=== PATIENT | female | born 1950 | race African-American/Black ===

== ENCOUNTER 2022-04-08 21:06 | Emergency (ER) | payer MEDICARE, MEDICAID ==
[~2022-04-08] VITALS: Ht 165.1 cm; Wt 73.0 kg
[~2022-04-08 21:06] MED LIST: AZOPT BOTHEYE; BRIM15DR2 BOTHEYE; CLON0.5T PO; GLYB5TAB4; NIFE60TA64 PO; NITR0.4T; PHEN100C4; TRAV2.5D9 BOTHEYE
[2022-04-08] MEDS ORDERED: ASPIRIN 81MG TABLET PO ONE (21:30)
[2022-04-08 22:23] LABS: BASOPHILS % 0.4 % (0.0-2.0); EOSINOPHILS % 1.6 % (0.0-5.0); HEMATOCRIT. 33.2 % (36.0-48.0); LYMPHOCYTES % 31.3 % (20.0-50.0); MEAN CORPUSCULAR HEMOGLOBIN 27.2 pg (28.0-32.0); MONOCYTES % 9.6 % (2.0-8.0); NEUTROPHILS % 57.1 % (40.0-76.0); PLATELET 201 x1000/uL (130-400); RED BLOOD CELL COUNT 4.05 mill/uL (4.2-5.4)
[2022-04-08 22:31] LABS: CHLORIDE 110 mEq/L (98-107)
[2022-04-09] VITALS: BP 165/99
[2022-04-09] MEDS ORDERED: ASPIRIN 81MG TABLET PO NR (01:00)
== END 2022-04-09 02:07 | disposition home or self-care (01) ==
LOC: ER 21:06
DX: R07.89 Other chest pain (principal); R03.0 Elevated blood-pressure reading, without diagnosis of hypertension; E11.9 Type 2 diabetes mellitus without complications; Z98.61 Coronary angioplasty status; Z79.84 Long term (current) use of oral hypoglycemic drugs; Z79.899 Other long term (current) drug therapy; Z88.0 Allergy status to penicillin
CPT/HCPCS: 36415; 71045; 80053; 83880; 84484; 85025; 93005; 99285; Z7610

== ENCOUNTER 2024-07-01 16:16 | Emergency (ER) | payer MEDICARE, MEDICAID ==
[~2024-07-01] VITALS: Ht 162.6 cm; Wt 59.0 kg
[~2024-07-01 16:16] MED LIST changes: -CLON0.5T PO; +CLON0.5T2 PO; +IBUP-2028 MT; +RISP05 PO; +TRAV2.5D BOTHEYE; -TRAV2.5D9 BOTHEYE
[2024-07-01 16:26] VITALS: O2SAT 99
[2024-07-01 17:36] LABS: BASOPHILS % 0.1 % (0.0-2.0); EOSINOPHILS % 1.2 % (0.0-5.0); HEMATOCRIT. 34.3 % (36.0-48.0); HEMOGLOBIN. 11.4 g/dL (12.0-16.0); LYMPHOCYTES % 37.1 % (20.0-50.0); MEAN CORPUSCULAR HEMOGLOBIN 27.6 pg (28.0-32.0); MEAN CORPUSCULAR HGB CONC 33.1 g/dL (31.0-37.0); MEAN CORPUSCULAR VOLUME 83.4 fL (81.0-99.0); MEAN PLATELET VOLUME 7.2 fl (7.4-10.4); MONOCYTES % 10.3 % (2.0-8.0); NEUTROPHILS % 51.3 % (40.0-76.0); PLATELET 193 x1000/uL (130-400); RED BLOOD CELL COUNT 4.12 mill/uL (4.2-5.4); RED CELL DISTRIBUTION WIDTH 13.7 % (11.6-14.6); WHITE BLOOD COUNT 6.1 x1000/uL (4.5-11.0)
[2024-07-01 17:38] LABS: CHLORIDE 110 mEq/L (98-107); POTASSIUM 3.8 mEq/L (3.5-5.1); SODIUM 145 mEq/L (136-145)
[2024-07-01 17:39] LABS: CARBON DIOXIDE 28 mEq/L (21-32)
[2024-07-01 17:40] LABS: CALCIUM 10.5 mg/dL (8.7-10.4)
[2024-07-01 17:44] LABS: CREATININE 0.7 mg/dL (0.6-1.0); GLUCOSE 138 mg/dL (70-105)
[2024-07-01 17:45] LABS: UREA NITROGEN BLOOD 18 mg/dL (9-23)
[2024-07-01 17:46] LABS: TROPONIN I HIGH SENSITIVITY 5 ng/L (3.0-34)
[2024-07-01 17:49] LABS: PARTIAL THROMBOPLASTIN TIME 23.9 sec (23.4-31.0); PROTHROMBIN TIME 10.9 sec (9.6-11.0)
[2024-07-01 20:58] VITALS: BP 167/89; PULSE 71; RESP 16; TEMP 37.05852; O2SAT 99
== END 2024-07-01 21:13 | disposition left against medical advice (07) ==
LOC: ER 16:16 → EDBEDREQ 16:37 → EDBEDREQTM 18:46 → EDBEDREQ 18:46 → ER 21:13
DX: R07.89 Other chest pain (principal); F41.9 Anxiety disorder, unspecified; F31.9 Bipolar disorder, unspecified; I11.0 Hypertensive heart disease with heart failure; I50.9 Heart failure, unspecified; F03.93 Unspecified dementia, unspecified severity, with mood disturbance; Z79.899 Other long term (current) drug therapy; Z88.0 Allergy status to penicillin
CPT/HCPCS: 36415; 71045; 80048; 83880; 84484; 85025; 93005; 99285

== ENCOUNTER 2024-10-19 18:45 | Inpatient (IN) | payer MEDICARE, MEDICAID ==
[~2024-10-19] VITALS: Ht 162.6 cm; Wt 66.2 kg
[2024-10-19 21:31] VITALS: BP 129/81; PULSE 84; RESP 20; TEMP 36.7
[2024-10-19] MEDS ORDERED: ONDANSETRON HCL 4MG/2ML INJ IV PRN (22:15)
[2024-10-19] MEDS ORDERED: ATROPINE SULFATE 1MG/10ML SYR IV PRN (22:15)
[2024-10-19] MEDS ORDERED: POLYVINYL ALCOHOL OPHTH DROPS 15ML EACHEYE PRN (22:15)
[2024-10-19] MEDS ORDERED: DEXTROSE 50% WATER 50ML SYRINGE IV PRN (22:15)
[2024-10-20] MEDS: ACETAMINOPHEN 325MG TABLET PO PRN (00:46)
[2024-10-20] MEDS: BLOOD SUGAR DIAGNOSTIC STRIP TEST SCH (06:05)
[2024-10-20 07:41] LABS: BASOPHILS % 0.2 % (0.0-2.0); EOSINOPHILS % 0.7 % (0.0-5.0); HEMATOCRIT. 32.6 % (36.0-48.0); HEMOGLOBIN. 10.7 g/dL (12.0-16.0); LYMPHOCYTES % 34.2 % (20.0-50.0); MEAN CORPUSCULAR HEMOGLOBIN 27.1 pg (28.0-32.0); MEAN CORPUSCULAR HGB CONC 32.8 g/dL (31.0-37.0); MEAN CORPUSCULAR VOLUME 82.4 fL (81.0-99.0); MEAN PLATELET VOLUME 7.3 fl (7.4-10.4); MONOCYTES % 11.4 % (2.0-8.0); NEUTROPHILS % 53.5 % (40.0-76.0); PLATELET 188 x1000/uL (130-400); RED BLOOD CELL COUNT 3.95 mill/uL (4.2-5.4); RED CELL DISTRIBUTION WIDTH 13.6 % (11.6-14.6); WHITE BLOOD COUNT 6.4 x1000/uL (4.5-11.0)
[2024-10-20 07:44] LABS: CHLORIDE 106 mEq/L (98-107); POTASSIUM 3.5 mEq/L (3.5-5.1); SODIUM 141 mEq/L (136-145)
[2024-10-20 07:45] LABS: CALCIUM 10.4 mg/dL (8.7-10.4); CARBON DIOXIDE 30 mEq/L (21-32)
[2024-10-20 07:50] LABS: GLUCOSE 93 mg/dL (70-105); UREA NITROGEN BLOOD 14 mg/dL (9-23)
[2024-10-20 07:52] LABS: ALANINE AMINOTRANSFERASE 19 IU/L (10-49); ALBUMIN 3.7 g/dL (3.2-4.8); ASPARTATE AMINOTRANSFERASE 17 IU/L (<34); BILIRUBIN TOTAL 0.5 mg/dL (0.1-1.0); PREALBUMIN 11.5 mg/dl (10.0-40.0); PROTEIN TOTAL 6.6 g/dL (6.0-8.3)
[2024-10-20 08:00] VITALS: BP 133/75; PULSE 89; RESP 18; TEMP 36.6; O2SAT 99
[2024-10-20 08:03] LABS: CREATININE 0.4 mg/dL (0.6-1.0)
[2024-10-20] MEDS: ASPIRIN 81MG TABLET PO SCH (08:33)
[2024-10-20] MEDS: AMLODIPINE 10MG TABLET PO SCH (08:34)
[2024-10-20] MEDS: METOPROLOL TARTRATE 50MG TABLET PO SCH (08:34)
[2024-10-20] MEDS: CLOPIDOGREL 75MG TABLET PO SCH (08:34)
[2024-10-20] MEDS: ISOSORBIDE MONONITRATE 30MG TABLET SR 24HR PO SCH (08:35)
[2024-10-20] MEDS: BRIMONIDINE 0.2% OPHTH DROPS 10ML BOTHEYE SCH (08:35)
[2024-10-20] MEDS: INSULIN LISPRO 100 UNITS/ML SUBCUT SCH (08:39)
[2024-10-20 18:20] LABS: CLARITY URINE CLOUDY (CLEAR); COLOR URINE DARK YELLOW (YELLOW); GLUCOSE URINE NEGATIVE (NEGATIVE); KETONES URINE NEGATIVE (NEGATIVE); LEUKOCYTE ESTERASE URINE TRACE (NEGATIVE); NITRITE URINE NEGATIVE (NEGATIVE); OCCULT BLOOD URINE TRACE (NEGATIVE); PH URINE 5.5 (4.5-8.0); PROTEIN URINE NEGATIVE (NEGATIVE); SPECIFIC GRAVITY URINE 1.024 (1.005-1.030)
[2024-10-20 19:26] LABS: BACTERIA URINE 3+; CALCIUM OXALATE CRYSTALS URINE 1+ /lpf; RBC URINE 0-2 /hpf (0-2); SQUAMOUS EPITHELIAL CELL URINE 1+ /lpf (RARE/1+); WBC URINE 0-2 /hpf (0-2)
[2024-10-20 20:00] VITALS: BP 109/64; PULSE 88; RESP 18; TEMP 36.4; O2SAT 96
[2024-10-20] MEDS: ATORVASTATIN CALCIUM 40MG TABLET PO SCH (21:11)
[2024-10-21 08:00] VITALS: BP 143/84; PULSE 88; RESP 18; TEMP 36.4; O2SAT 96
[2024-10-21 13:27] LABS: BASOPHILS % 0.2 % (0.0-2.0); EOSINOPHILS % 1.1 % (0.0-5.0); HEMATOCRIT. 31.6 % (36.0-48.0); HEMOGLOBIN. 10.2 g/dL (12.0-16.0); LYMPHOCYTES % 31.7 % (20.0-50.0); MEAN CORPUSCULAR HEMOGLOBIN 26.8 pg (28.0-32.0); MEAN CORPUSCULAR HGB CONC 32.3 g/dL (31.0-37.0); MEAN CORPUSCULAR VOLUME 82.9 fL (81.0-99.0); MEAN PLATELET VOLUME 7.4 fl (7.4-10.4); MONOCYTES % 11.6 % (2.0-8.0); NEUTROPHILS % 55.4 % (40.0-76.0); PLATELET 212 x1000/uL (130-400); RED BLOOD CELL COUNT 3.82 mill/uL (4.2-5.4); RED CELL DISTRIBUTION WIDTH 13.7 % (11.6-14.6); WHITE BLOOD COUNT 5.9 x1000/uL (4.5-11.0)
[2024-10-21 13:54] LABS: CHLORIDE 108 mEq/L (98-107); POTASSIUM 3.9 mEq/L (3.5-5.1); SODIUM 144 mEq/L (136-145)
[2024-10-21 13:55] LABS: CALCIUM 10.5 mg/dL (8.7-10.4); CARBON DIOXIDE 29 mEq/L (21-32)
[2024-10-21 14:00] LABS: CREATININE 0.6 mg/dL (0.6-1.0); GLUCOSE 111 mg/dL (70-105); IRON 35 ug/dL (50-170); UREA NITROGEN BLOOD 15 mg/dL (9-23)
[2024-10-21 14:01] LABS: AMMONIA 30 uMol/L (<32)
[2024-10-21 14:02] LABS: ALANINE AMINOTRANSFERASE 15 IU/L (10-49); ALBUMIN 3.7 g/dL (3.2-4.8); ASPARTATE AMINOTRANSFERASE 15 IU/L (<34); BILIRUBIN TOTAL 0.4 mg/dL (0.1-1.0)
[2024-10-21 14:03] LABS: FOLIC ACID (FOLATE) SERUM 18.91 ng/mL (>5.38); PROTEIN TOTAL 6.7 g/dL (6.0-8.3); TOTAL IRON BINDING CAPACITY 223 ug/dl (250-425)
[2024-10-21 14:04] LABS: FERRITIN 41 ng/mL (10-291); THYROID STIMULATING HORMONE 3.43 uIU/mL (0.55-4.78); VITAMIN B12 SERUM 849 pg/mL (211-911)
[2024-10-21 20:00] VITALS: BP 121/83; PULSE 89; RESP 19; TEMP 36.5; O2SAT 98
[2024-10-22 08:00] VITALS: BP 149/88; PULSE 74; RESP 18; TEMP 36.4; O2SAT 100
[2024-10-22] MEDS: ASCORBIC ACID 500 MG TABLET PO SCH (09:33)
[2024-10-22] MEDS: FERROUS SULFATE 325MG TABLET PO SCH (09:33)
[2024-10-22] MEDS: DOCUSATE SODIUM 100MG CAPSULE PO SCH (12:55)
[2024-10-22 20:00] VITALS: BP 109/62; PULSE 78; RESP 19; TEMP 36.8; O2SAT 99
[2024-10-23 08:00] VITALS: BP 108/63; PULSE 57; RESP 18; TEMP 36.3; O2SAT 98
[2024-10-23 20:00] VITALS: BP 139/84; PULSE 93; RESP 20; TEMP 36.2; O2SAT 98
[2024-10-23] MEDS: METOPROLOL TARTRATE 50MG TABLET PO SCH (22:00)
[2024-10-24] MEDS: ISOSORBIDE MONONITRATE 30MG TABLET SR 24HR PO SCH (09:00)
[2024-10-24 10:49] VITALS: BP 140/74; PULSE 70; RESP 18; TEMP 36.2; O2SAT 95
[2024-10-24 20:00] VITALS: BP 147/78; PULSE 88; RESP 19; TEMP 36.4; O2SAT 99
[2024-10-25 20:14] VITALS: BP 121/71; PULSE 76; RESP 19; TEMP 36.1; O2SAT 99
[2024-10-26 08:00] VITALS: BP 114/59; PULSE 64; RESP 17; TEMP 36.5; O2SAT 100
[2024-10-26 11:58] LABS: CHLORIDE 108 mEq/L (98-107); SODIUM 142 mEq/L (136-145)
[2024-10-26 11:59] LABS: BASOPHILS % 0.2 % (0.0-2.0); CALCIUM 10.4 mg/dL (8.7-10.4); CARBON DIOXIDE 28 mEq/L (21-32); EOSINOPHILS % 1.1 % (0.0-5.0); HEMATOCRIT. 33.2 % (36.0-48.0); HEMOGLOBIN. 10.7 g/dL (12.0-16.0); LYMPHOCYTES % 37.9 % (20.0-50.0); MEAN CORPUSCULAR HEMOGLOBIN 26.8 pg (28.0-32.0); MEAN CORPUSCULAR HGB CONC 32.4 g/dL (31.0-37.0); MEAN CORPUSCULAR VOLUME 82.6 fL (81.0-99.0); MEAN PLATELET VOLUME 7.1 fl (7.4-10.4); MONOCYTES % 10.5 % (2.0-8.0); NEUTROPHILS % 50.3 % (40.0-76.0); PLATELET 220 x1000/uL (130-400); RED BLOOD CELL COUNT 4.01 mill/uL (4.2-5.4); RED CELL DISTRIBUTION WIDTH 14.1 % (11.6-14.6); WHITE BLOOD COUNT 6.7 x1000/uL (4.5-11.0)
[2024-10-26 12:04] LABS: CREATININE 0.6 mg/dL (0.6-1.0); GLUCOSE 106 mg/dL (70-105); UREA NITROGEN BLOOD 20 mg/dL (9-23)
[2024-10-26 12:06] LABS: ALANINE AMINOTRANSFERASE 10 IU/L (10-49); ALBUMIN 3.8 g/dL (3.2-4.8); ASPARTATE AMINOTRANSFERASE 13 IU/L (<34); BILIRUBIN TOTAL 0.3 mg/dL (0.1-1.0); PROTEIN TOTAL 6.9 g/dL (6.0-8.3)
[2024-10-26 20:00] VITALS: BP 120/64; PULSE 93; RESP 18; TEMP 36.5; O2SAT 98
[2024-10-27 08:00] VITALS: BP 149/87; PULSE 75; RESP 18; TEMP 36.5; O2SAT 98
[2024-10-27] MEDS: LACTULOSE 20G/30ML UDC PO SCH (15:51)
[2024-10-27] MEDS: ERGOCALCIFEROL 50000UNITS CAPSULE PO SCH (17:55)
[2024-10-27 20:02] VITALS: BP 136/92; PULSE 86; RESP 20; TEMP 36.5; O2SAT 99
[2024-10-28 06:35] LABS: CALCIUM 10.8 mg/dL (8.7-10.4)
[2024-10-28 06:42] LABS: T4 FREE 1.04 ng/dL (0.89-1.76)
[2024-10-28 08:00] VITALS: BP 130/69; PULSE 67; RESP 18; TEMP 36; O2SAT 100
[2024-10-28] MEDS: BRIMONIDINE 0.2% OPHTH DROPS 5ML BOTHEYE SCH (10:15)
[2024-10-28 20:00] VITALS: BP 128/62; PULSE 77; RESP 18; TEMP 36.4; O2SAT 98
[2024-10-29 08:00] VITALS: BP 166/101; PULSE 83; RESP 18; TEMP 36.7; O2SAT 99
[2024-10-29 20:00] VITALS: BP 121/85; PULSE 96; RESP 18; TEMP 36.5; O2SAT 97
[2024-10-30 08:00] VITALS: BP 138/74; PULSE 68; RESP 18; TEMP 35.9; O2SAT 98
[2024-10-30 10:18] VITALS: BP 138/74; PULSE 68; TEMP 96.7; O2SAT 98
[2024-10-30] MEDS ORDERED: CLOP-31 PO (10:24)
[2024-10-30] MEDS ORDERED: LIP40 PO (10:24)
[2024-10-30] MEDS ORDERED: ASPI-1160 PO (10:24)
[2024-10-31 09:11] LABS: ANGIOTENSION CONVERTING ENZYME 34 U/L (14-82)
== END 2024-10-30 11:35 | disposition home health service (06) | DRG 71 ==
PROVIDERS: ADMIT Physical Medicine & Rehabilitation Spinal Cord Injury Medicine; ATTEND Internal Medicine
DX: G93.41 Metabolic encephalopathy (principal); F33.1 Major depressive disorder, recurrent, moderate; I25.110 Atherosclerotic heart disease of native coronary artery with unstable angina pectoris; E11.319 Type 2 diabetes mellitus with unspecified diabetic retinopathy without macular edema; H40.9 Unspecified glaucoma; H54.7 Unspecified visual loss; G40.909 Epilepsy, unspecified, not intractable, without status epilepticus; R26.9 Unspecified abnormalities of gait and mobility; I10 Essential (primary) hypertension; D50.9 Iron deficiency anemia, unspecified; E78.5 Hyperlipidemia, unspecified; Z88.0 Allergy status to penicillin; Z91.81 History of falling; Z98.61 Coronary angioplasty status; E55.9 Vitamin D deficiency, unspecified; K59.00 Constipation, unspecified; E21.0 Primary hyperparathyroidism; F41.1 Generalized anxiety disorder; I69.391 Dysphagia following cerebral infarction; R41.89 Other symptoms and signs involving cognitive functions and awareness; Z60.2 Problems related to living alone
CPT/HCPCS: 36415; 80053; 81003; 82140; 82164; 82306; 82310; 82330; 82533; 82607; 82728; 82746; 82962; 83036; 83540; 83550; 83735; 83970; 84100; 84134; 84155; 84165; 84439; 84443; 85025; 92523; 92610; 97110; 97112; 97116; 97162; 97166; 97530; 97535